=== PATIENT | female | born 1980 | race Asian ===

== ENCOUNTER 2021-02-25 20:17 | Emergency (ER) | payer OTHER, SELFPAY ==
[2021-02-25 20:37] VITALS: BP 130/81; PULSE 106; RESP 16; TEMP 37.1; O2SAT 97; BMI 42.7
[2021-02-25 21:17] LABS: Add Manual Diff / Slide Review NO; Basophils Absolute Auto 100 /uL (0-100); Basophils Percent Auto 0.6 % (0-2); Eosinophils Absolute Auto 100 /uL (0-450); Eosinophils Percent Auto 0.7 % (2-4); Hematocrit 44.5 % (36-46); Hemoglobin 14.5 g/dL (12.0-16.0); Lymphocytes Absolute Auto 2100 /uL (1100-4500); Lymphocytes Percent Auto 24.1 % (25-40); Mean Corpuscular HGB Conc 32.6 % (30-36); Mean Corpuscular Hemoglobin 28.2 PG (26-34); Mean Corpuscular Volume 86.5 fL (80-100); Monocytes Absolute Auto 400 /uL (0-900); Monocytes Percent Auto 4.7 % (3-14); Neutrophils Absolute Auto 6000 /uL (1500-7000); Neutrophils Percent Auto 69.9 % (50-75); Platelet Count 255 X10^3/uL (150-400); Red Blood Cell Count 5.14 X10^6/uL (4.0-5.2); Red Cell Distribution Width 14.4 % (11.6-14.8); White Blood Cell Count 8.5 X10^3/uL (4.5-11.0)
[2021-02-25 21:31] LABS: UR Morphine/Opiate cutoff 300 Negative (Negative); Ur Creatinine Normal (Normal); Ur Specific Gravity Normal (Normal); Urine Amphetamines Negative (Negative); Urine Barbiturates Negative (Negative); Urine Benzodiazepines Negative (Negative); Urine Cocaine Negative (Negative); Urine MDMA Negative (Negative); Urine Methadone Negative (Negative); Urine Methamphetamines Negative (Negative); Urine Oxycodone Negative (Negative); Urine Phencyclidine Negative (Negative); Urine Tetrahydrocannabinol Negative (Negative); Urine Tricyclic Antidepressant Negative (Negative); Urine pH Normal (Normal)
[2021-02-25 21:34] LABS: Acetaminophen < 10 ug/mL (10-30); Alanine Aminotransferase 81 IU/L (<35); Albumin 4.7 g/dL (3.5-5.0); Albumin Globulin Ratio 1.1 (1.0-2.8); Alkaline Phosphatase 103 U/L (38-126); Aspartate Aminotransferase 58 IU/L (14-36); BUN Creatinine Ratio 5.8 (6-22); Bilirubin Total 0.4 mg/dL (0.2-1.3); Blood Urea Nitrogen 5 mg/dL (7-17); Calcium 9.8 mg/dL (8.4-10.2); Carbon Dioxide 22 mmol/L (22-32); Chloride 103 mmol/L (98-107); Estimated Glomerular Filt Rate > 60.0 mL/min (>60); Ethanol (ETOH) 25 mg/dL; Globulin 4.1 g/dL (1.7-4.1); Glucose 144 mg/dL (70-100); HEMOLYSIS < 15 (0-50); Salicylate < 1.0 mg/dL (<20); Sodium 141 mmol/L (137-145); Total Protein 8.8 g/dL (6.3-8.2)
[2021-02-25 21:57] LABS: Free T4, Direct Thyroxine 1.18 ng/dL (0.78-2.19)
[2021-02-25 22:11] LABS: Thyroid Stimulating Hormone 1.25 uIU/mL (0.47-4.68)
--- NOTE | 2021-02-26 01:32 | ED.PSYCH ---
HPI - Psych General Chief Complaint: Psychiatric Symptoms Stated Complaint: etoh, suicidal Time Seen by Provider: 02/26/21 01:27 Source: patient Mode of arrival: Wheelchair History of Present Illness HPI Narrative: Patient is a 40-year-old female presents voluntarily with suicidal thoughts and history of depression. She says this evening she drank Tequila and got a knife and then called her best friend. She had thoughts and intent of harming herself. She has previously cut herself with scissors. She broke up with her boyfriend last week of 2 years and still has not gotten over her dad's from 7 years ago. She lives at home with her 19-year-old daughter and mother. She is waiting to see her PCP on March 11 get started on medication. MD complaint: suicidal ideation and feels depressed Related Data Allergies Allergy/AdvReac Type Severity Reaction Status Date / Time No Known Drug Allergies Allergy Verified 02/25/21 20:39 Review of Systems Review of Systems ROS Unobtainable: All systems reviewed & are unremarkable except as noted in HPI and below Constitutional Constitutional: Denies chills, Denies fever(s), Denies lethargy and Denies weakness Cardiovascular Cardiovascular: Denies dyspnea and Denies dyspnea on exertion Respiratory Respiratory: Denies cough, Denies dyspnea, Denies dyspnea on exertion and Denies wheezing Musculoskeletal Musculoskeletal: Denies arthralgias and Denies back pain Integumentary/Breasts Skin/Breast: Denies pruritus, Denies erythema, Denies rash and Denies wounds Neurologic Neurologic: Denies weakness Psychiatric Psychiatric: Reports as per HPI and Reports depression Allergic/Immunologic Allergic/Immunologic: Denies wheezing Patient History Medical History Depression Social History Smoking Status: Current every day smoker Smoking Status: Current every day smoker alcohol intake frequency: holidays/special occasions only Substance Use Type: does not use Exam Initial Vital Signs Initial Vital Signs: Vital Signs Temperature 98.8 F 02/25/21 20:37 Pulse Rate 106 H 02/25/21 20:37 Respiratory Rate 16 02/25/21 20:37 Blood Pressure 130/81 02/25/21 20:37 Pulse Oximetry 97 02/25/21 20:37 GENERAL: Alert pleasant 40-year-old female BMI 42 HEENT: Head atraumatic,EOMI, pupils reactive, face symmetric CARDIOVASCULAR: Regular rate and rhythm without murmurs, rubs or gallops. RESPIRATORY: Breath sounds equal bilaterally, no wheezes rales or rhonchi. EXTREMITIES: Normal range of motion, no clubbing or edema. Neurovascularly intact NEUROLOGICAL: Alert and oriented x4.Normal gait and speech. SKIN: Warm, dry, no laceration, no petechiae, no rashes or lesions. Course Orders Ordered: ED Orders 02/25/21 21:09 Acetaminophen Stat Complete Blood Count AUTO DIFF Stat Comprehensive Metabolic Panel Stat Ethanol (ETOH) Stat Free T4, Direct Thyroxine Stat Salicylate Stat Thyroid Stimulating Hormone Stat 02/25/21 21:21 Urine Drug Screen, Rapid Stat Discontinued Medications Potassium Chloride (Potassium Chloride 20 Meq Tab) 40 meq PO NOW ONE Stop: 02/26/21 01:38 Last Admin: 02/26/21 01:53 Dose: 40 meq Documented by: MANNY Vital Signs Vital signs: Vital Signs - 8 hr 02/25/21 20:37 02/26/21 02:10 Temperature 98.8 F Pulse Rate 106 H 77 Respiratory Rate 16 Blood Pressure 130/81 130/86 Pulse Oximetry 97 98 MDM - Psych Lab Data Attestation: I reviewed the patient's lab results. Result diagrams: 02/25/21 21:09 02/25/21 21:09 Labs: Lab Results 02/25/21 02/25/21 02/25/21 Range/Units 21:09 21:09 21:09 WBC 8.5 (4.5-11.0) X10^3/uL RBC 5.14 (4.0-5.2) X10^6/uL Hgb 14.5 (12.0-16.0) g/dL Hct 44.5 (36-46) % MCV 86.5 (80-100) fL MCH 28.2 (26-34) PG MCHC 32.6 (30-36) % RDW 14.4 (11.6-14.8) % Plt Count 255 (150-400) X10^3/uL Neut % (Auto) 69.9 (50-75) % Lymph % (Auto) 24.1 L (25-40) % Bowie % (Auto) 4.7 (3-14) % Eos % (Auto) 0.7 L (2-4) % Baso % (Auto) 0.6 (0-2) % Neut # (Auto) 6000 (9428-5323) /uL Lymph # (Auto) 2100 (3934-6231) /uL Bowie # (Auto) 400 (0-900) /uL Eos # (Auto) 100 (0-450) /uL Baso # (Auto) 100 (0-100) /uL Sodium 141 (137-145) mmol/L Potassium 3.0 L (3.4-5.1) mmol/L Chloride 103 (98-107) mmol/L Carbon Dioxide 22 (22-32) mmol/L BUN 5 L (7-17) mg/dL Creatinine 0.86 (0.52-1.04) mg/dL Estimated GFR > 60.0 (>60) mL/min BUN/Creatinine Ratio 5.8 L (6-22) Glucose 144 H (70-100) mg/dL Calcium 9.8 (8.4-10.2) mg/dL Total Bilirubin 0.4 (0.2-1.3) mg/dL AST 58 H (14-36) IU/L ALT 81 H (<35) IU/L Alkaline Phosphatase 103 (38-126) U/L Total Protein 8.8 H (6.3-8.2) g/dL Albumin 4.7 (3.5-5.0) g/dL Globulin 4.1 (1.7-4.1) g/dL Albumin/Globulin Ratio 1.1 (1.0-2.8) TSH 1.25 (0.47-4.68) uIU/mL Free T4 1.18 (0.78-2.19) ng/dL Salicylates < 1.0 (<20) mg/dL U Opiates 300ng/mL cut (Negative) Ur Oxycodone Screen (Negative) Urine Methadone Screen (Negative) Acetaminophen < 10 L (10-30) ug/mL Ur Barbiturates Screen (Negative) U Tricyclic Antidepress (Negative) Ur Phencyclidine Scrn (Negative) Ur Amphetamines Screen (Negative) U Methamphetamines Scrn (Negative) Ur MDMA Scrn (Ecstasy) (Negative) U Benzodiazepines Scrn (Negative) Urine Cocaine Screen (Negative) U Marijuana (THC) Screen (Negative) Ethyl Alcohol 25 H ( - 10) mg/dL 02/25/21 Range/Units 21:21 WBC (4.5-11.0) X10^3/uL RBC (4.0-5.2) X10^6/uL Hgb (12.0-16.0) g/dL Hct (36-46) % MCV (80-100) fL MCH (26-34) PG MCHC (30-36) % RDW (11.6-14.8) % Plt Count (150-400) X10^3/uL Neut % (Auto) (50-75) % Lymph % (Auto) (25-40) % Bowie % (Auto) (3-14) % Eos % (Auto) (2-4) % Baso % (Auto) (0-2) % Neut # (Auto) (3435-2246) /uL Lymph # (Auto) (9184-4478) /uL Bowie # (Auto) (0-900) /uL Eos # (Auto) (0-450) /uL Baso # (Auto) (0-100) /uL Sodium (137-145) mmol/L Potassium (3.4-5.1) mmol/L Chloride (98-107) mmol/L Carbon Dioxide (22-32) mmol/L BUN (7-17) mg/dL Creatinine (0.52-1.04) mg/dL Estimated GFR (>60) mL/min BUN/Creatinine Ratio (6-22) Glucose (70-100) mg/dL Calcium (8.4-10.2) mg/dL Total Bilirubin (0.2-1.3) mg/dL AST (14-36) IU/L ALT (<35) IU/L Alkaline Phosphatase (38-126) U/L Total Protein (6.3-8.2) g/dL Albumin (3.5-5.0) g/dL Globulin (1.7-4.1) g/dL Albumin/Globulin Ratio (1.0-2.8) TSH (0.47-4.68) uIU/mL Free T4 (0.78-2.19) ng/dL Salicylates (<20) mg/dL U Opiates 300ng/mL cut Negative (Negative) Ur Oxycodone Screen Negative (Negative) Urine Methadone Screen Negative (Negative) Acetaminophen (10-30) ug/mL Ur Barbiturates Screen Negative (Negative) U Tricyclic Antidepress Negative (Negative) Ur Phencyclidine Scrn Negative (Negative) Ur Amphetamines Screen Negative (Negative) U Methamphetamines Scrn Negative (Negative) Ur MDMA Scrn (Ecstasy) Negative (Negative) U Benzodiazepines Scrn Negative (Negative) Urine Cocaine Screen Negative (Negative) U Marijuana (THC) Screen Negative (Negative) Ethyl Alcohol ( - 10) mg/dL Point of Care Testing Test Results Negative Urine Dip Bedside Urine Glucose Negative Bedside Urine Bilirubin - Negative Bedside Urine Ketone - Negative Urine Specific Vaughn 1.010 Bedside Urine Occult Blood ++ Bedside Urine pH 6 Bedside Urine Protein - Negative Bedside Urine Urobilinogen - Negative Bedside Urine Nitrite - Negative Bedside Urine Leukocytes - Negative Esterase MDM Narrative Medical decision making narrative: Patient is here with good friend. He does not meet involuntary criteria at this time. She is waiting for an appointment on the . At this time she no longer wants placement. She feels like she would like to go home with her friend and stay there for a while. She is no longer suicidal. She does trust herself to be alone and not hurt herself. She says the nighttime just gets bad for her her thoughts never stop in her mind continues to race. She understands that she can come back any time. At this time the front is willing to take full responsibility and state this the patient. She denies having any guns in the house and the knife and medications are locked away. Discharge Plan Departure Patient Disposition: Home Clinical Impression: Suicidal ideation, Acute hypokalemia Instructions: DI for Suicidal Ideation-Adult Activity Restrictions/Additional Instructions: *You have been diagnosed with suicidal ideation depression *What to do: If you are feeling suicidal or having suicidal thoughts: Call: Suicide Hotline: Visit: www.[employer] [facility].org Text: 893074 *Continue to take medications as directed *Follow up with your primary care provider in 2-3 days Please call your doctor to see if you can move up your appointment *Return to ER if you should have thoughts of suicide, depression or harming self or any new, worsening or concerning symptoms
[2021-02-26] MEDS: POTASSIUM CHLORIDE 20 MEQ TAB 40 MEQ PO (01:53)
[2021-02-26 02:10] VITALS: BP 130/86; PULSE 77; O2SAT 98
== END 2021-02-26 02:12 | disposition home or self-care (01) ==
PROVIDERS: Emergency Provider Emergency Medicine
DX: E87.6 Hypokalemia (principal); R45.851 Suicidal ideations
CPT/HCPCS: 36415; 80053; 80305; 80320; 80329; 81003; 81025; 84439; 84443; 85025; 99284; G0480

== ENCOUNTER 2021-05-10 21:36 | Emergency (ER) | payer OTHER, SELFPAY ==
--- NOTE | 2021-05-10 | DI.CT.S_ITS ---
PROCEDURE: CT LE LT W CON INDICATIONS: TIB PLATEAU FRACTURE TECHNIQUE: Noncontrast 3 mm axial sections acquired of the left lower extremity from the level of the distal femur through the foot , with coronal and sagittal reformats. COMPARISON: [facility], CR, XR TIBIA FIBULA LT 2V, 05/10/2021, 21:48. FINDINGS: Image quality: Excellent. Bones: Comminuted fracture of lateral tibial plateau, with approximately 1.4 cm of depression of the lateral tibial plateau articular surface. There is also a nondisplaced fibular head fracture. Soft tissues: Associated hemoeffusion is present. Plantar and posterior calcaneal spurring. The muscles appear grossly intact. IMPRESSION: Depressed, comminuted lateral tibial plateau fracture as above. Nondisplaced fibular head fracture Associated left knee hemarthrosis. Findings concordant with preliminary study interpretation. Dictated by: Portillo Castellanos M.D. on 05/11/2021 at 8:12 Approved by: Portillo Castellanos M.D. on 05/11/2021 at 8:17
[2021-05-10 21:45] VITALS: BP 128/72; PULSE 66; RESP 16; TEMP 36.6; O2SAT 98; BMI 39.2
--- NOTE | 2021-05-10 21:49 | DI.RAD.S_ITS ---
PROCEDURE: XR TIBIA FIBULA LT 2V INDICATIONS: fall TECHNIQUE: 2 views of the tibia and fibula were acquired. COMPARISON: None. FINDINGS: Bones: Probable nondisplaced, nondepressed fracture of the lateral tibial plateau. Cortical irregularity noted in the proximal fibula/fibular head concerning for nondisplaced fracture. Soft tissues: No suspicious soft tissue calcifications or masses. IMPRESSION: 1. Probable nondisplaced, nondepressed lateral tibial plateau fracture. 2. Possible nondisplaced left fibular head fracture. Dictated by: Carmen Epstein MD, PhD on 05/11/2021 at 8:46 Approved by: Carmen Epstein MD, PhD on 05/11/2021 at 8:48
[2021-05-11] MEDS: HYDROMORPHONE 1 MG INJ IM (00:12)
--- NOTE | 2021-05-11 00:57 | ED.LOWEXIN ---
HPI - Extremity Injury (Lower) General Chief Complaint: Extremity Injury, Lower Stated Complaint: Left Leg Pain, Fell 12'-15' Time Seen by Provider: 05/11/21 00:48 Source: patient Mode of arrival: Wheelchair Limitations: no limitations History of Present Illness HPI Narrative: PATIENT IS A 40-YEAR-OLD FEMALE WITH HISTORY OF DEPRESSION PRESENTING WITH RIGHT LEG PAIN. SHE FELL OFF A SAND D[employer]ES/GALE AT [email or web address] LIKE. HIS OBVIOUS PAIN ON THE LEFT knee is with some mild swelling. She has some scrapes on her back and some right buttock pain as well. Has no numbness or tingling in her foot. No head injury or loss of conscious. She has not had any nausea or vomiting. She received dose of dilaudid earlier in the emergency department and seems to have helped a lot. Related Data Previous Rx's Medication Instructions Recorded hydrocodone-acetaminophen 1 tab PO Q6H PRN #10 tab 05/11/21 Allergies Allergy/AdvReac Type Severity Reaction Status Date / Time No Known Drug Allergies Allergy Verified 02/25/21 20:39 Review of Systems Review of Systems Narrative: GENERAL: Denies chills, fatigue, malaise, fever, sweats, travel HEENT: Denies sinus pain, ear pain, sore throat, difficulty swallowing, neck pain RESPIRATORY: Denies dyspnea, cough, wheezing, hemoptysis, sputum. CARDIOVASCULAR: Denies chest pain, palpitations, orthopnea, edema GASTROINTESTINAL: Denies nausea, vomiting, abdominal pain, diarrhea, constipation, melena. : Denies dysuria, frequency, incontinence, hematuria, urinary retention, flank pain. MUSCULOSKELETAL: See HPI SKIN: No rash, no erythema, no pruritus NEUROLOGIC: Denies weakness, dizziness, headache, numbness, change in speech, confusion PSYCHIATRIC: No concerning psychosocial issues. 12 point review of systems is negative except for those stated above and HPI Patient History Medical History Depression Social History Smoking Status: Current every day smoker Smoking Status: Current every day smoker alcohol intake frequency: holidays/special occasions only Substance Use Type: does not use Exam Initial Vital Signs Initial Vital Signs: Vital Signs Temperature 97.8 F 05/10/21 21:45 Pulse Rate 66 05/10/21 21:45 Respiratory Rate 16 05/10/21 21:45 Blood Pressure 128/72 05/10/21 21:45 Pulse Oximetry 98 05/10/21 21:45 GENERAL: Light alert 40-year-old female in wheelchair BMI 39 HEENT: Head atraumatic,EOMI, pupils reactive, face symmetric, [moist] mucous membranes NECK: Supple no vertebral tenderness full flexion extension CARDIOVASCULAR: Regular rate and rhythm without murmurs, rubs or gallops. RESPIRATORY: Breath sounds equal bilaterally, no wheezes rales or rhonchi. ABDOMEN: Soft, nontender. Normoactive bowel sounds all 4 quadrants. No guarding or rebound. BACK: No vertebral tenderness no step-offs contusion noted in buttock EXTREMITIES: Normal range of motion, no clubbing or edema. Neurovascularly intact Left lower extremity tender over the fibular head no significant swelling over the tibia is distal pedal pulses felt no ankle or foot injury. No hip pain. NEUROLOGICAL: Alert and oriented x4. SKIN: Warm, dry, no laceration, no petechiae, no rashes or lesions. Procedures Orthopedic Splinting/Casting Injury #1: Side: left Lower Extremity Injury Location: knee Lower Extremity Immobilizer: knee immobilizer Post splinting neuro exam: no change Post splinting vascular exam: no change Placed by: Nursing Course Orders Ordered: ED Orders 05/10/21 21:49 XR tibia fibula LT 2V Stat Discontinued Medications Hydrocodone Bitart/Acetaminophen (Hydrocodone/Acet 5/325 Prepack) 1 bottle MISC SEEINSTR ONE Stop: 05/11/21 02:16 Last Admin: 05/11/21 02:24 Dose: 1 bottle Documented by: JC Hydromorphone HCl (Hydromorphone 1 Mg Inj) 1 mg IM NOW ONE Stop: 05/11/21 00:06 Last Admin: 05/11/21 00:12 Dose: 1 mg Documented by: JC Vital Signs Vital signs: Vital Signs - 8 hr 05/10/21 21:45 05/11/21 02:19 Temperature 97.8 F Pulse Rate 66 58 L Respiratory Rate 16 16 Blood Pressure 128/72 100/58 L Pulse Oximetry 98 98 MDM - Extremity Injury (Lower) Imaging Data Extremity x-ray #1: Radiologist's Impression: Preliminary report probable longitudinal fracture all lateral tibial plateau. Nonspecific irregularity of fibular head. Recommend follow-up and for move knee study CT lower extremity: Radiologist's Impression: Comminuted depressed lateral tibial plateau fracture as described. Comminuted nondisplaced fibular head fracture noted MDM Narrative Medical decision making narrative: 0115-Dr. Moore reviewed CT scan. At this time knee immobilizer crutches and follow-up will likely need surgery Discharge Plan Departure Patient Disposition: Home Clinical Impression: Closed fracture of left tibial plateau Instructions: DI for Tibial Plateau Fracture Activity Restrictions/Additional Instructions: *You have been diagnosed with left tibial plateau fracture *What to do: I am sorry that you broke your leg. You will need surgery however not emergent at this time. Keep knee immobilizer on no weight-bearing use crutches at all times. May elevate and ice as needed *Continue to take medications as directed [place] 1-2 tablets every 6 hours if needed for severe pain--> SENT TO [facility] IN [place] *Follow up with your primary care provider in 2-[address] [facility] to schedule follow-up appointment this week and surgery, she is aware of you and has already reviewed your scan *Return to ER if you should have increasing pain or swelling numbness or tingling or any new, worsening or concerning symptoms CONTROLLED SUBSTANCE DISCHARGE (Narcotoic/benzodiazepine/Flexeril/Phenergan) 1. You have been prescribed narcotic medications, it does have acetaminophen/Tylenol/paracetamol in it, DO NOT TAKE MORE THAN 4,00mg in 24 hours of Tylenol. TRAMADOL DOES NOT CONTAIN TYLENOL 2. Please understand that we cannot provide further refills of narcotics, benzodiazepines or controlled substances through the ED and her pain management will need to be through your provider. 3. While on these medications you cannot drive or operate heavy machinery. 4. You cannot sign legal documents or perform any duties such as this. 5. As long as you're taking opiate pain medications he should also be taking a stool softener such as Colace, Dulcolax, MiraLAX or prune juice, to help avoid constipation. Prescriptions: New hydrocodone-acetaminophen 5-325 mg tablet 1 tab PO Q6H PRN (Reason: pain) Qty: 10 RF: 0 Referrals: Bailee Moore MD [Physician] - Santana Cantu MD [Primary Care Provider] - Stand Alone Forms: Work Release Note
[2021-05-11 02:19] VITALS: BP 100/58; PULSE 58; RESP 16; O2SAT 98
[2021-05-11] MEDS: HYDROCODONE/ACET 5/325 PREPACK 1 BOTTLE MISC (02:24)
== END 2021-05-11 02:40 | disposition home or self-care (01) ==
PROVIDERS: Emergency Provider Emergency Medicine; PCP Family Medicine
DX: S82.142A Displaced bicondylar fracture of left tibia, initial encounter for closed fracture (principal); W19.XXXA Unspecified fall, initial encounter
CPT/HCPCS: 73590; 73700; 96372; 99283; 99284; J1170

== ENCOUNTER → 2021-05-14 13:11 | Outpatient (CLI) | payer OTHER, SELFPAY ==
[2021-05-14 13:41] LABS: COVID19 -Nasal RAPID Negative (Negative)
== END ==
PROVIDERS: PCP Family Medicine; Referring Provider Physician Assistant; Visit Provider Physician Assistant
DX: Z20.822 Contact with and (suspected) exposure to COVID-19 (principal)
CPT/HCPCS: 87635

== ENCOUNTER 2021-05-15 06:09 | Day surgery (SDC) | payer OTHER, SELFPAY ==
[2021-05-14 07:57] VITALS: BMI 38.9
[2021-05-15] VITALS (14 sets, daily range): BP systolic 107–155; BP diastolic 65–98; PULSE 61–99; RESP 10–19; TEMP 35.8–36.4; O2SAT 89–98; BMI 38.9
--- NOTE | 2021-05-15 | DI.RAD.S_ITS ---
PROCEDURE: XR TIBIA FIBULA LT 2V INDICATIONS: LEFT TIBIAL PLATAEU FRACTURE TECHNIQUE: 2 views of the tibia and fibula were acquired. COMPARISON: [facility], CT, CT LE LT WO CON, 05/10/2021, 23:49. [facility], CR, XR TIBIA FIBULA LT 2V, 05/10/2021, 21:48. FINDINGS: Bones: No previously unidentified fractures or dislocations. No suspicious bony lesions. The depressed tibial plateau fracture laterally has been elevated to anatomic alignment and fixed in position by single visualized transverse K-wire, with course of the wire just above the upper tip of the fibula. Soft tissues: No suspicious soft tissue calcifications or masses. IMPRESSION: Normal anatomic alignment established for healing with a single transverse K-wire above the fibular head, after elevation of the depressed tibial plateau fracture previously documented by trauma CT scanning. Dictated by: Baldemar Gaspar M.D. on 05/15/2021 at 12:39 Approved by: Baldemar Gaspar M.D. on 05/15/2021 at 12:59
[2021-05-15] MEDS: LACTATED RINGERS 1,000 ML 42 ML IV (07:14)
--- NOTE | 2021-05-15 07:20 | PM.PREOP ---
Pre-operative Note COVID-19 COVID-19 status: Negative Result date/Date tested (Pos, Neg/Pending): 05/14/21 Interval Note History & Physical reviewed/Exam performed by Physician: Yes Changes to H&P: No
[2021-05-15] MEDS: ACETAMINOPHEN 325 MG TABLET 975 MG PO ×3 (07:46→21:20)
[2021-05-15] MEDS: CEFAZOLIN 1 GM VIAL 2 GM IV ×2 (08:05→16:53)
[2021-05-15] MEDS: BUPIVACAINE 0.25% (PF) VIAL 30 ML INJ (08:39)
[2021-05-15] MEDS: EPINEPHrine 1 MG/ML 0.15 MG INJ (08:40)
--- NOTE | 2021-05-15 08:43 | SUR.OPER ---
Supine on padded OR bed. Pillow under head, arms secured on padded armboards <90 degree abduction. Safety belt across abdomen. Non-operative leg secured with tape over blanket over lower leg. Operative leg secured on triangle positioner. Bump under left hip.
[2021-05-15] MEDS: OXYCODONE IR 5 MG TABLET PO (11:13)
--- NOTE | 2021-05-15 11:44 | SUR.PHASEI ---
pt arrouses easily to her name, when awakened states pain is 8/10 and falls immediately back to sleep. Medicated with 5mg oxycodone, able to drink water and a few bites of applesauce. 3L O2 to maintain sats, 89% on RA
[2021-05-15] MEDS: LACTATED RINGERS 1,000 ML 125 ML IV ×2 (11:58→21:23)
[2021-05-15] MEDS: OXYCODONE IR 10 MG TABLET PO ×3 (11:58→22:31)
--- NOTE | 2021-05-15 12:19 | P.OP_ITS ---
Operative Date/Time/Diagnoses Date of procedure: 05/15/21 Time of procedure: 08:20 Pre-op diagnosis: Left closed tibial plateau fracture s82.142. Fibula head fracture, left Post-op diagnosis: same Procedure & Clinicians Procedure: Open reduction internal fixation left tibial plateau fracture unicondylar CPT code 71430, left Same procedure as scheduled: Yes Indications: Patient is a 40-year-old female with a Schatzker type 2 split depression fracture of the lateral tibial plateau that has greater than 7 mm of joint depression. She has been indicated for open reduction internal fixation to restore the joint surface and stability and reduce the risk of posttraumatic arthritis. The risks and benefits and alternatives of the procedure were discussed with the with the patient along with the recovery. Use of allograft bone or bone graft substitute was discussed. The risks and benefits of the procedure have been discussed with the patient even opportunity to ask questions. The risks of surgery include but are not limited to infection, malunion, nonunion, persistence of pain, damage to nerves and blood vessels, posttraumatic arthritis, DVT, PE, cardiopulmonary complications and . The patient expressed a thorough understanding of the risks and benefits of surgery and has elected to proceed. Consent was signed in the office. During the operation, the executive marketing assistant services of Dr. Pinto were medically indicated and necessary to provide the exposure of the operative site for the surgical procedure and to maintain the limb in a proper position to carry out the operation safely and efficiently. Without a qualified executive marketing assistant being present this would extended the operative procedure and made the procedure technically more difficult to perform. Surgeon: Gaby Gresham Med Admin: Nickolas Pinto Operative Notes Findings: Schatzker type 2 split depression fracture of the lateral tibial plateau. With posterior based split and posterior half of the lateral compartment depressed approximately 7 mm and incarcerated. Additional comminuted but nondisplaced fracture fibular head. Closure Type: primary Specimen(s): none sent Applied: implant(s) (Moore [employer] nephew evos lateral tibial plateau plate, 4 hole with proximal nonlocking and locking rafting screws and distal cortical screws. Separate 4.0 cannulated screw and washer anterior to posterior outside of the plate for joint compression and rafting) Estimated Blood Loss (mL): 30 Blood products transfused: none Tourniquet time (min): 100 Procedure in detail: Patient was seen in the preoperative area the site of surgery was marked informed consent confirmed. The patient was then brought back to the operating room by the anesthesia team positioned supine on the operative table. General anesthesia was administered. A high-thigh tourniquet was placed and well padded. An SCD was placed on the contralateral lower extremity. An ipsilateral hip bump was placed. The left lower extremities prepped and draped in the standard sterile fashion. A formal time-out procedure was performed confirming the patient's side and site of surgery administration of appropriate preoperative antibiotics presence of informed consent and implants were in the room and accounted for. All were in agreement. Attention was turned to the left leg. The S incision centered over Gerdy's tubercle was marked out on the leg. The Esmarch was used for exsanguination the tourniquet raised on the thigh to 250 mmHg. This point incision was made through the skin sharply with dissection taken down to the ITB band. The ITB band was split and the anterior compartment musculature was dissected off of the tibial crest and around Gerdy's tubercle leaving a cuff for later repair. The joint was located and a submeniscal arthrotomy was made with care. The intra- articular hematoma was evacuated. The lateral meniscus and meniscal capsule ligaments were tagged with 2. Ethibond suture to retract out of the way. This exposed the large depressed posterior lateral plateau fragment. Next the split apart of the fracture was attempted to be isolated this was very incarcerated however and it was felt that a bone window was required to mobilize the incarcerated depressed articular fragment in order to elevated and restore the joint congruity therefore a 2 5 drill was used to make sequential vertical drill holes in the anterior articular block these were connected with an osteotome and the metaphyseal window was then opened and removed exposing the depressed articular fragment. The combination of the [place] and osteotome were then used to mobilize the incarcerated depressed articular block once this was mobile this was elevated to restore the lateral plateau height and then pinned in place with a 045 K-wire. This was scrutinized visually and on AP and lateral x-rays for congruency was felt to be anatomic were within 1 mm on all views. At this point given in the anterior posterior nature of the split a decision was made for a anterior to posterior lag screw as a primary fixation outside of the lateral buttress plate. Therefore, an ADP wire was placed and checked on AP and lateral fluoroscopy to be just below the subchondral bone this was over drilled with the drill from the 4-0 cannulated screw set and a partially threaded 4-0 cancellous lag screw was placed a to P over a washer. Provided excellent fixation of the articular fragment. Next the lateral plateau plate was positioned along the tibia this was checked on AP and lateral fluoroscopy to make sure was at the right level then was pinned in place with multiple K-wires. At this point it was fixed proximally and distally with nonlocking screws a partially-threaded cancellous screw was used for a lag effect proximally and a cortical screw distally these were sequentially tightened in order to bring the plate down to bone and buttress the fracture split component. The exiting split component and void from the joint elevation was just at the posterior margin of the cluster of screws and this was accessible through a window and was packed with cancellous chips to support the articular fragment. Then additional locking rafting screws were placed proximally followed by nonlocking cortical screw distally. Multiple planer x-rays were obtained intraoperatively confirming alignment and reduction. The 2. Ethibond tag sutures were then taken through the plate at tied over the plate to secure the meniscus. The width of the plateau and joint elevation was reestablished. The tourniquet was released. Hemostasis was achieved. IT band was repaired with 0 Vicryl subcutaneous tissue with 2-0 Vicryl and 4-0 Monocryl and yuni in the skin. Local anesthetic with 0.25% Marcaine and epinephrine was injected for local pain control. Stability exam was checked of the knee was grossly stable in varus and valgus knee anterior drawer. Sterile dressing was placed with Xeroform gauze Webril Amilcar wrap and a knee immobilizer. Patient was woken from anesthesia and taken to the postoperative unit in good condition. There no immediate complications. Complications: none Post-operative Condition: stable Disposition: PACU Plan for aftercare: Patient will be admitted to the floor. She will be nonweightbearing or touchdown for balance only on the left lower extremity. She will have ice and elevation. And compartment monitoring. She will get 2 doses of postoperative antibiotics. Will have oral and IV pain medications for pain control. Will have Lovenox for DVT prophylaxis while in the hospital and discharged with 2 weeks of Xarelto for DVT prophylaxis. She will be in the knee immobilizer for the 1st 2 weeks postoperatively and then switch to a hinged knee brace in clinic. She will remain toe-touch weight-bearing for 10 weeks postoperatively. She will take calcium and vitamin-D for bone health. Anticipate discharge tomorrow after physical therapy.
--- NOTE | 2021-05-15 16:42 | PC.NURSE ---
Pt medicated for pain LLE 06/30. P.T. in to see patient.
--- NOTE | 2021-05-15 17:24 | PC.NURSE ---
Addendum entered by Maya Michele R.N. 05/15/21 18:08: Ice removed and immobilizer refastened to LLE. Right scd in place. Pt states pain now 4/10 and is drowsy. I.S. teaching completed. Bed alarm set and pt instructed not to attempt out of bed without assistance. Acknowledges understanding. Original Note: P.T. in with pt. Pt medicated for LLE pain 8/10 as per emar. Pt out of bed with P.T. and crutches adjusted. LLE immobilizer in place. Able to palpate left pedal pulse. Pt able to wiggle left toes and feel this ad copy writer's touch. Brisk cap refill. Reports feeling improvement in pain s/p medication administration. Ice to left knee as placed by physical therapy.
--- NOTE | 2021-05-15 17:30 | PT.IIE ---
Current Diagnoses Displaced bicondylar fracture of left tibia, initial encounter for closed fracture (05/15/21) Surgery Performed Operation Date: 05/15/21 07:45 Actual Procedures p ORIF Lateral Tibial Plateau Fracture with cancellous bone chips(Left) - Gaby Gresham MD Medical History (Last Reviewed 05/11/21 @ 02:08 by Mahsa Gracia DO) Depression Physical Therapy Inpatient Evaluation/Re-Eval M1 PT/OT-IP Prior Functional Status Start: 05/15/21 17:44 Freq: NEEDED Status: Active Protocol: Document 05/15/21 17:30 DLM (Rec: 05/15/21 18:03 DLM [id number]) Medical Review Prior Functional Status Medical History Reviewed Yes Diet/Fluid Consistency Regular Communication WNL Mobility and Gait Independent without device, she has been using crutches since her fall 05/10/21 and NWB left LE Activities of Daily Living and IADL's Independent, has been sponge bathing since her fall on 05/10, she has a low bed so has been sleeping on couch since her injury 05/10/21 Prior Functional Level (Other details) her job is mostly standing all day, 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, has been off work since her fall 05/10/21 M2 PT-IP Current Condition Start: 05/15/21 17:44 Freq: NEEDED Status: Active Protocol: Document 05/15/21 17:30 DLM (Rec: 05/15/21 18:03 DLM [id number]) Physical Therapy Current Condition Current Condition Evaluation Date 05/15/21 Treatment Diagnosis left tibial plateau fx, ORIF, impaired gait Onset Date 05/15/21 Precautions Brace left knee immobilizer at all times, No ROM Weight Bearing Status Weight Bearing Status Touch Down Weight Bearing M3 PT-IP Subjective Start: 05/15/21 17:44 Freq: NEEDED Status: Active Protocol: Document 05/15/21 17:30 DLM (Rec: 05/15/21 18:03 DLM [id number]) Subjective Physical Therapy Visit Type Type Initial Evaluation Visit Start Time 16:55 Visit Stop Time 17:30 Total Visit Minutes 35 Notes fell about 12 feet off lisette on 05/10/21, seen in ED, admitted today for surgery Number of FRUIT DRYER Visits 0 Physical Therapy Visit Comments Patient Comments Her knee is sore since surgery , she reports liking the FWW better than the crutches, she got up to bedside commode with nsg Patient Goals return home at discharge Therapy Pain Assessment Pain When Pain Assessed At Rest Pain Present Pain Present Pain Reported Location LLE Intensity 8 Scale Used Numeric (0 - 10) Description Aching Pain Behaviors Guarding Pain Management Techniques Apply Cold,Elevation,Timing of Activity with Medications M4 PT-IP Mobility and Gait Start: 05/15/21 17:44 Freq: NEEDED Status: Active Protocol: Document 05/15/21 17:30 DLM (Rec: 05/15/21 18:03 DL [id number]) PT-Bed Mobility Assessment Supine to Sit Supine to Sit Independent Sit to Supine Sit to Supine Independent Scooting Scooting to Edge of Bed Independent Scooting Up and Down in Bed Independent PT-Transfer Assessment Sit to and From Stand Sit to and from Stand Standby Assistance,Use of Upper Extremities Equipment Transfer Assistive Device Gait Belt,Front Wheeled Walker Transfers Transfer Destination Bed,Toilet Transfer Technique Stand Step Pivot Transfer Ability Level of Assist Standby Assistance,Use of Upper Extremities Comments Mobility Comments adjusted her crutches to improve fit, pt demonstrates good use of UE's to assist herself Gait Assessment Gait Gait Assistance Required: Standby Assistance Distance (Feet) 20 Able to Maintain Weight Bearing Status Yes During Gait Assistive Devices Assistive Device Gait Belt,Front Wheeled Walker Gait Deviations General Gait Pattern Antalgic Factors Limiting Gait Function Factors Limiting Gait Function Decreased Strength,Limited Range of Motion,Pain Comments Gait Comments she reports feeling steadier with the FWW than crutches, assisted her with IV to ambulate to toilet to urinate Stair Climbing Assessment Evaluation Level of Assist On Stairs Standby Assistance Devices Stair Climbing Assistive Devices Axillary Crutches,Left Railing Technique/Endurance Stair Climbing Direction Ascend and Descend Stair Climbing Technique Step to Step Number of Steps Climbed 1 Query Text: Stair Climbing Set # Repetitions (reps) 2 Comments Stair Climbing Comments educated her in going up and down stairs with one rail and one crutch and up/down curb with fWW (up going backwards with FWW for support and down forwards) PT-Balance Assessment Sitting Balance and Reactions Static Sitting Balance Ability Normal Dynamic Sitting Balance Ability Normal Standing Balance and Reactions Static Standing Balance Ability Good Dynamic Standing Balance Ability Good Device Used FWW M5 PT-IP Objective Assessments Start: 05/15/21 17:44 Freq: NEEDED Status: Active Protocol: Document 05/15/21 17:30 DLM (Rec: 05/15/21 18:03 DLM [id number]) Orientation Orientation/Cognition Level of Alertness Alert Orientation Name,Age,Birthday,Month,Date, Year,Day of Week,Place, Situation Language Function Ability No Deficits Noted Safety Awareness Understands Safety Issues Memory Description No Deficits Noted Gross Range of Motion Upper Extremity ROM Assessment Within Functional Limits Lower Extremity ROM Assessment Left Impaired Impairments knee in immobilizer post-op, no ROM allowed, stiffness noted left ankle dorsiflexion Strength Upper Extremity Strength Assessment Within Functional Limits Lower Extremity Strength Assessment Left Impaired Hip able to move in bed with immobilizer in place Knee none allowed, immobilized post -op Ankle DF 4/5 with pain in knee Coordination Assessment Gross Coordination Gross Coordination WNL Sensation Assessment Sensation Gross Sensation WNL Comments Sensation Comments unable to assess under agustin wrap left LE, pt reports no numbness in foot Muscle Tone Muscle Tone WNL Yes M6 PT-IP Treatment Start: 05/15/21 17:44 Freq: NEEDED Status: Active Protocol: Document 05/15/21 17:30 DLM (Rec: 05/15/21 18:03 DL [id number]) Physical Therapy Treatment Exercises Exercises Ankle Pumps,Gluteal Sets,Quad Sets Education Education Provided Precautions,Weight Bearing Status,Safety Equipment Issued Equipment Type and Company adjusted pt's crutches from home for improved fit/use Other Treatments Other Treatment Performed educated her in home safety issues, answered her questions M7 PT-IP Assessment and Plan Start: 05/15/21 17:44 Freq: NEEDED Status: Active Protocol: Document 05/15/21 17:30 DLM (Rec: 05/15/21 18:03 DLM [id number]) PT Summary Assessment and Plan Potential Rehabilitation Potential Excellent Status of Condition at Evaluation Evolving Summary Impairments Pain,ROM,Strength,Transfers, Gait,Activity Tolerance Assessment Summary Ashley is alert and resting in bed. She reports she was using crutches before surgery but having difficulty. Pt tried the FWW for gait and prefers it. She will need a fWW for home use. She tolerated gait in her room well with FWW. She was able to complete stair training this visit. She demonstrates good ability to stay NWB/TTWB left LE during gait. Anticipate she will be safe to discharge home tomorrow when cleared medically. Will monitor her progress while she is hospitalized. Goals Bed Mobility Goal Independent Transfer Goal Independent,Crutches,Front Wheeled Walker Gait Goal Independent,Crutches,Front Wheel Walker Gait Distance 150 feet Days to Meet Goals 2 Frequency of Treatment Frequency Of Treatment Twice a Day Treatment Plan Physical Therapy Treatment Plan Transfer Training,Gait Training,Therapeutic Exercise, Post Op Education,Discharge Planning,Hot or Cold Pack Other Recommendations and Next Treatment completed stair training this Focus visit Recommendations To Nursing Amount of Assist Needed Standby Assistance Discharge Recommendations PT Discharge Recommendations Home with Assistance Other Discharge Recommendations She reports her Mother and Daughter can assist her at home Equipment Needed for Home Before FWW for home use Discharge Transportation Needs at Discharge Private Vehicle
[2021-05-15] MEDS: DOCUSATE 100 MG CAPSULE PO (21:20)
[2021-05-16] MEDS: CEFAZOLIN 1 GM VIAL 2 GM IV (00:15)
[2021-05-16 00:45] VITALS: BP 122/67; PULSE 67; RESP 20; TEMP 36.4; O2SAT 94
[2021-05-16] MEDS: OXYCODONE IR 10 MG TABLET PO ×2 (02:38→08:43)
[2021-05-16] MEDS: LACTATED RINGERS 1,000 ML 125 ML IV (05:41)
[2021-05-16 06:06] VITALS: BP 143/77; PULSE 57; RESP 18; TEMP 36.4; O2SAT 95
[2021-05-16] MEDS: ACETAMINOPHEN 325 MG TABLET 975 MG PO (08:41)
[2021-05-16] MEDS: DOCUSATE 100 MG CAPSULE PO (08:43)
[2021-05-16] MEDS: ESCITALOPRAM 10 MG TABLET PO (08:43)
[2021-05-16] MEDS: ENOXAPARIN 40 MG/0.4 ML SYRINGE SUBCUT (08:44)
--- NOTE | 2021-05-16 09:03 | P.DS_ITS ---
History of Present Illness History of Present Illness Date Patient Seen: 05/16/21 Time Patient Seen: 09:03 Date of Onset of Symptoms: 05/10/21 Chief complaint: *OPB* Narrative: Patient is a 40-year-old female that sustained a left type 2 Scha tzker tibial plateau fracture with significant joint depression greater than 7 mm. She was indicated for operative treatment. Discharge Providers Provider Discharge Date: 05/16/21 Primary care physician: Santana Cantu MD Consults: 05/15/21 11:38 Consult to Physical Therapy Evaluate & Treat Comment: [facility] SRUTHIE Physician Instructions: Evaluate and Treat Consult to Respiratory Therapy Evaluate & Treat Comment: Physician Instructions: Evaluate and treat Discharge provider: Gaby Gresham MD Summary Hospital Course Discharge Diagnosis: Left Schatzker 2 tibial plateau fracture Hospital Course: Patient was admitted to the hospital following surgery. She received postoperative antibiotics IV fluids and pain medication. She was bridged oral pain medication work with physical therapy cleared for home with assistance with a forward walker. She tolerated oral medications and a p.o. diet. Pain was controlled on postoperative day 1 Status at Discharge Cognitive/behavioral status at discharge: oriented Functional status at discharge: uses cane/walker Overall status at discharge: patient is progressing back to baseline Time Spent with Patient Time spent: Less than 30 minutes Exam Vital Signs (past 8 hours): - 05/16/21 06:06 Temperature 97.5 F L Pulse Rate 57 L Respiratory Rate 18 Blood Pressure 143/77 H Pulse Oximetry 95 Oxygen Delivery Method Room Air Oxygen Flow Rate 0 Narrative Exam Narrative: General examination is alert oriented female no acute distress sitting in the bedside chair. She has been up to the commode with assistance and a walker. She endorses pain that is improved with the oral pain medication. Denies any fevers chills or nausea. She is able to demonstrate active dorsiflexion plantar flexion of her left lower extremity some stiffness. No numbness or tingling. A full active range of motion and 5/5 strength of the right lower extremity. SCDs in place on the right lower extremity. Objective Imaging X-ray knee left: My impression: Intraoperative fluoro shots of the left tibia and fibula, knee demonstrate elevation of the lateral tibial plateau fracture provisional fixation with a K-wire and then final fixation with a AP lag screw and lateral buttress plate demonstrating anatomic alignment. Nondisplaced fibular head fracture [facility] Medical History Depression Social History household members: family Smoking Status: Current every day smoker alcohol intake: current Comment: Patient was counseled on smoking cessation as well as impact on general health and bone and soft tissue healing and blood clot risk Discharge Assessment & Plan Assessment and Plan Assessment: Left closed displaced Schatzker type 2 split depression fracture of the lateral tibial plateau status post open reduction internal fixation. Patient progressing as expected postop day 1 discharge home today. Plan of Treatment: 1. Will remain toe-touch weight-bearing for 10 weeks--use crutches or walker for ambulation 2. Knee immobilizer will stay in place for 2 weeks. May adjust if needed. Keep dressings underneath intact. Will convert to hinged knee brace at 1st postoperative appointment and start PT for range of motion at that time. 3. DVT prophylaxis will be Xarelto for 2 weeks transition to aspirin 325 mg b.i.d. likely following this. Patient counseled on smoking cessation to reduce DVT risk. She does not have any history of DVT she does not take any estrogen 4. Discharge medications with oxycodone, Zofran for nausea, Colace for stool softener may also take Tylenol. 5. Discussed calcium and vitamin-D recommend 5000 units of vitamin D daily and 1200 mg of calcium for bone health. The supplements can be taken in pill, drop or gummy vitamin form Discharge Plan Discharge Plan Patient Disposition: Home Discharge orders & Medications Discharge Orders: Discharge (Order); Ordered 05/16/21 Ordered By: Gaby Gresham Prescriptions: New docusate sodium [DOK] 100 mg Capsule 100 mg PO BID Qty: 30 RF: 0 oxycodone 5 mg tablet 5 - 10 mg PO Q4H PRN (Reason: pain) Qty: 60 RF: 0 ondansetron HCl [Zofran] 4 mg tablet 4 mg PO Q8H PRN (Reason: nausea and vomiting) Qty: 5 RF: 1 Xarelto 10 mg tablet 10 mg PO DAILY Qty: 14 RF: 0 Continued escitalopram oxalate 10 mg tablet 10 mg PO DAILY RF: 0 Discontinued hydrocodone-acetaminophen 5-325 mg tablet 1 tab PO Q6H PRN (Reason: pain) Qty: 10 RF: 0 Follow up/Referrals: Gaby Gresham MD [Physician] - (2 week postop 05/27/21 2:30 pm [facility] ) Santana Cantu MD [Primary Care Provider] - Diet/Activity/Treatments Diet: Diet as Tolerated Activity: Toe-touch weight-bearing left lower extremity. Maintain knee immobilizer. Until 1st follow-up. Keep dressings dry. May do foot pumps and ankle range of motion. Use walker or crutches for ambulation. Cold/Heat Therapy: Ice to left knee up to 20 minutes every hour. Other treatments: At-Home Instructions - Dr. Gresham Surgery: Left tibial plateau fracture open reduction internal fixation Cast/Splint/Dressing Care Instructions 1) Keep cast/dressing clean and dry. 2) May bathe - but cast/dressing must remain dry. 3) Should the cast become wet, you need to come into emergency department or call your physician's clinic immediately for cast removal and replacement. Moisture can cause skin breakdown and lead to infection if left untreated. 4) Do not stick any sharp object down the cast/dressing to itch, as this can cause scrapes/cuts/punctures which can lead to infection. 6) Observe for increasing pain in the extremity with the cast, finger/toe-tips turning blue/purple, or numbness and tingling in your toes/fingers. Should any of these symptoms arise, you need to be seen immediately for evaluation of swelling and increasing compartment pressures within your affected extremity. 7) You may ice your extremity, being careful to prevent melting ice from saturating into the splint/cast. Activity No heavy lifting greater than 10 pounds. [address] while on narcotic pain medication. Do not get your dressing/cast/splint wet! You must remain non-weight bearing / toe touch for balance on your operative extremity. Use crutches or a walker for ambulation. No driving until you are otherwise instructed by your physician. This will be addressed at your first follow-up appointment. Discharge Pain Medications You will be given a prescription for pain medication. You should start taking this the same day after your surgery. Wean off as tolerated. Do not wait to take the pain medication until the pain is severe, as it will be difficult to catch up once this occurs. The pain medication usually reaches its full effect ~1 hour after ingesting. If you have been sent home on Colace, this medication should be taken until you are off all narcotic (i.e. Vicodin, Percocet, Oxycodone, etc) pain medications, to prevent constipation. You may also obtain this or another stool softener over the counter to prevent or alleviate constipation. Percocet or Vicodin have Tylenol in their ingredient lists. You must be careful not to exceed 3,000mg (3 grams) of Tylenol, from all sources, within a single 24-hr period. This means that you may not take more than 10 pills within a 24- hr period. Do NOT take Regular or Extra Strength Tylenol when taking your Percocet or Vicodin medications. -IF you have been given a Toradol/ketorolac prescription, this is a very strong anti-inflammatory. Do not take jovn-wmn-uvdjrki anti-inflammatories (ibuprofen, Aleve, Advil, Motrin) while taking the Toradol/ketorolac. Once you are finished with this prescription, then you can resume ggya-sbr-gpshjua anti-inflammatories . You can still take your narcotic pain medication and Tylenol while taking the Toradol/ketorolac. -Some common side effects of the narcotic pain medications (Percocet, Oxycodone, Vicodin, etc.) include nausea and itching. Benadryl is a great over the counter medication that helps calm your stomach, decreases your anxiety levels, and minimizes the itching. You can easily purchase this at your local pharmacy as an okrl-axj-erowomg medication. Please abide by the instructions as printed on the bottle. If your nausea persists, make sure to take small amounts of crackers or other emergency management consultant foods. Follow-Up/Emergency Contacts Please call for an appointment in either [place] or [place], if one has not been scheduled. Follow up 2 weeks after surgery. [phone] Contact the office if you have any of the following: ? Painful swelling or numbness ? Unrelenting pain ? Fever (over 101?- it is normal to have a low grade fever for the first day or two following surgery) or chills ? Redness around the incisions ? Color changes ? Continuous bleeding or drainage from the incision (a small amount is expected) ? Excessive nausea or vomiting ? Difficulty breathing If you have an emergency that requires immediate attention, proceed to the nearest emergency room. Blood Clot Prophylaxis You will need to complete course of medication after surgery, to minimize the risk of blood clots following surgery. You have been prescribed 2 weeks of Xarelto 10 mg which she will take once a day starting on 05/17/2021. Pain Medications: It is the policy of [facility] that narcotic medications will only be refilled during office hours. Additionally, due to the alarming rate of narcotic pain medication abuse/dependence, it has become necessary for physician practices to closely manage patient use of prescription narcotic pain relievers, such as Vicodin ([place]), Percocet, and Oxycodone products. Narcotic pain management in the postoperative period may not exceed 6 weeks. If narcotic pain management is required beyond 90 days, then a referral to a Chronic Pain Specialist will be made. If a request for a medication prescription has been made, the physician must review your chart prior to authorizing the request. Please be patient with office staff. If you call during patient hours, your call may not be returned until the end of the day. Dr. Gaby Gresham [address] [email or web address] Skin/Wound/Dressing Care Report to your healthcare provider any signs of infection, such as:: chills, fever, night sweats, increased pain, unusual drainage and unusual redness Dressing: Keep dressing clean dry and intact. May adjust the knee immobilizer if needed for comfort Discharge Data Primary Care Provider: Santana Cantu Attending Provider: Gaby Gresham VTE Deep Vein Thrombosis/Pulmonary Embolism Present on Admission: No
[2021-05-16 09:39] VITALS: BP 132/72; PULSE 72; RESP 16; TEMP 37.2; O2SAT 98
--- NOTE | 2021-05-16 09:50 | PT.IPTN ---
Current Diagnoses Displaced bicondylar fracture of left tibia, initial encounter for closed fracture (05/15/21) Surgery Performed Operation Date: 05/15/21 07:45 Actual Procedures p ORIF Lateral Tibial Plateau Fracture with cancellous bone chips(Left) - Gaby Gresham MD Physical Therapy Treatment Note M2 PT-IP Current Condition Start: 05/15/21 17:44 Freq: NEEDED Status: Active Protocol: Document 05/15/21 17:30 DLM (Rec: 05/15/21 18:03 DLM [id number]) Physical Therapy Current Condition Current Condition Evaluation Date 05/15/21 Treatment Diagnosis left tibial plateau fx, ORIF, impaired gait Onset Date 05/15/21 Precautions Brace left knee immobilizer at all times, No ROM Weight Bearing Status Weight Bearing Status Touch Down Weight Bearing M3 PT-IP Subjective Start: 05/15/21 17:44 Freq: NEEDED Status: Active Protocol: Document 05/16/21 09:50 DLM (Rec: 05/16/21 11:11 DLM [id number]) Subjective Physical Therapy Visit Type Type Treatment Note Visit Start Time 09:20 Visit Stop Time 09:50 Total Visit Minutes 30 Number of LOPPER Visits 0 Physical Therapy Visit Comments Patient Comments She feels ready to go home today, she still wants a FWW for home Patient Goals discharge home with family to help her Therapy Pain Assessment Pain When Pain Assessed During Mobility Pain Present Pain Present Pain Reported Location LLE Intensity 4 Scale Used Numeric (0 - 10) Description Aching Pain Behaviors Facial Grimacing Pain Management Techniques Elevation,Re-positioning M4 PT-IP Mobility and Gait Start: 05/15/21 17:44 Freq: NEEDED Status: Active Protocol: Document 05/16/21 09:50 DLM (Rec: 05/16/21 11:11 DLM [id number]) PT-Transfer Assessment Sit to and From Stand Sit to and from Stand Independent,Use of Upper Extremities Equipment Transfer Assistive Device Front Wheeled Walker Transfers Transfer Destination Chair Transfer Technique Stand Step Pivot Transfer Ability Level of Assist Independent,Use of Upper Extremities Comments Mobility Comments She is up in recliner today. Gait Assessment Gait Gait Assistance Required: Independent Distance (Feet) 40 Able to Maintain Weight Bearing Status Yes During Gait Assistive Devices Assistive Device Front Wheeled Walker Gait Deviations General Gait Pattern Antalgic Factors Limiting Gait Function Factors Limiting Gait Function Decreased Activity Tolerance, Decreased Strength,Limited Range of Motion,Pain Comments Gait Comments She demonstrates safe gait with FWW, she shows good ability to stay NWB/TTWB on left LE Stair Climbing Assessment Comments Stair Climbing Comments verbally reviewed stair training that was performed yesturday, pt feels confident in doing stairs at home M5 PT-IP Objective Assessments Start: 05/15/21 17:44 Freq: NEEDED Status: Active Protocol: Document 05/15/21 17:30 DLM (Rec: 05/15/21 18:03 DLM [id number]) Orientation Orientation/Cognition Level of Alertness Alert Orientation Name,Age,Birthday,Month,Date, Year,Day of Week,Place, Situation Language Function Ability No Deficits Noted Safety Awareness Understands Safety Issues Memory Description No Deficits Noted Gross Range of Motion Upper Extremity ROM Assessment Within Functional Limits Lower Extremity ROM Assessment Left Impaired Impairments knee in immobilizer post-op, no ROM allowed, stiffness noted left ankle dorsiflexion Strength Upper Extremity Strength Assessment Within Functional Limits Lower Extremity Strength Assessment Left Impaired Hip able to move in bed with immobilizer in place Knee none allowed, immobilized post -op Ankle DF 4/5 with pain in knee Coordination Assessment Gross Coordination Gross Coordination WNL Sensation Assessment Sensation Gross Sensation WNL Comments Sensation Comments unable to assess under agustin wrap left LE, pt reports no numbness in foot Muscle Tone Muscle Tone WNL Yes M6 PT-IP Treatment Start: 05/15/21 17:44 Freq: NEEDED Status: Active Protocol: Document 05/16/21 09:50 DLM (Rec: 05/16/21 11:11 DLM [id number]) Physical Therapy Treatment Exercises Exercises Ankle Pumps Education Education Provided Weight Bearing Status,Safety Brace Education [place],Patient Equipment Issued Equipment Type and Company Issued FWW from [employer] for home use, Youth FWW since pt is 5'1 tall, adjusted walker for safe use and pt ambulated with it in her room, pt educated in how to adjust the FWW M7 PT-IP Assessment and Plan Start: 05/15/21 17:44 Freq: NEEDED Status: Active Protocol: Document 05/16/21 09:50 DLM (Rec: 05/16/21 11:11 DLM [id number]) PT Summary Assessment and Plan Summary Impairments Pain,ROM,Strength,Transfers, Gait,Activity Tolerance Progress Towards Goals Safe For Discharge Assessment Summary Ashley is progressing well after surgery. She was issued a FWW for home use. She demonstrates safe use of FWW for gait. She still has her crutches which she will need to use on her stairs to enter her home. Pt appears safe to discharge home when medically cleared. Goals Bed Mobility Goal Independent Transfer Goal Independent,Crutches,Front Wheeled Walker Gait Goal Independent,Crutches,Front Wheel Walker Gait Distance 150 feet Days to Meet Goals 2 Frequency of Treatment Frequency Of Treatment Twice a Day Treatment Plan Physical Therapy Treatment Plan Transfer Training,Gait Training,Therapeutic Exercise, Post Op Education,Discharge Planning,Hot or Cold Pack Recommendations To Nursing Amount of Assist Needed Standby Assistance Discharge Recommendations PT Discharge Recommendations Home with Assistance Other Discharge Recommendations She reports her Mother and Daughter can assist her at home Equipment Needed for Home Before FWW issued Discharge Transportation Needs at Discharge Private Vehicle
--- NOTE | 2021-05-16 11:58 | PC.NURSE ---
Patient just discharged home. IV taken out. Patient dressing cdi, with immobilizer on. Patient comfortable and denied pain. CMS wnl and ppx2.
== END 2021-05-16 11:59 | disposition home or self-care (01) ==
LOC: OR 06:10 → AC 06:10
PROVIDERS: PCP Family Medicine; Referring Provider Orthopaedic Surgery Foot and Ankle Surgery; Visit Provider Orthopaedic Surgery Foot and Ankle Surgery
PROC: (CPT 27535; principal; 2021-05-15 07:45)
DX: S82.142A Displaced bicondylar fracture of left tibia, initial encounter for closed fracture (principal); F41.9 Anxiety disorder, unspecified; F32.9 Major depressive disorder, single episode, unspecified; F17.210 Nicotine dependence, cigarettes, uncomplicated; W15.XXXA Fall from cliff, initial encounter
CPT/HCPCS: 27535; 73590; 76000; 97116; 97162; J0171; J0690; J1100; J1170; J1650; J2250; J2405; J2704; J3010